=== PATIENT | female | born 1955 | race Caucasian/White ===

== ENCOUNTER 2019-03-21 16:05 | Emergency (ER) | payer OTHER ==
[~2019-03-21] VITALS: Ht 149.9 cm; Wt 88.9 kg
[2019-03-21 16:37] VITALS: Ht 149.9 cm; Wt 88.9 kg
[2019-03-21 19:10] VITALS: BP 154/70
== END 2019-03-21 19:10 | disposition home or self-care (01) ==
LOC: ED 16:05
DX: S42.251A Displaced fracture of greater tuberosity of right humerus, initial encounter for closed fracture (principal); M25.561 Pain in right knee; M79.601 Pain in right arm; M25.511 Pain in right shoulder; I10 Essential (primary) hypertension; E11.9 Type 2 diabetes mellitus without complications; E78.00 Pure hypercholesterolemia, unspecified; E66.9 Obesity, unspecified; Z68.39 Body mass index [BMI] 39.0-39.9, adult; Z98.890 Other specified postprocedural states; Z88.6 Allergy status to analgesic agent; W01.0XXA Fall on same level from slipping, tripping and stumbling without subsequent striking against object, initial encounter; Y93.89 Activity, other specified; Y92.89 Other specified places as the place of occurrence of the external cause; Y99.8 Other external cause status
CPT/HCPCS: J3010